=== PATIENT | female | born 1960 | race Caucasian/White ===

== ENCOUNTER 2025-09-14 09:35 | Outpatient (CLI) | payer BC | END 2025-09-14 09:36 | disposition home or self-care (01) | LOC: BICRAD 09:35 | PROVIDERS: ATTEND Orthopaedic Surgery | DX: M54.2 Cervicalgia (principal); M47.812 Spondylosis without myelopathy or radiculopathy, cervical region | CPT/HCPCS: 72040 ==

== ENCOUNTER 2025-10-09 10:29 | Outpatient (CLI) | payer BC | END 2025-10-09 10:30 | disposition home or self-care (01) | LOC: SCSBT 10:29 | PROVIDERS: ATTEND Family Medicine | DX: M85.89 Other specified disorders of bone density and structure, multiple sites (principal) | CPT/HCPCS: 77080 ==